=== PATIENT | female | born 1950 | race Caucasian/White ===

== ENCOUNTER → 2017-05-09 | Outpatient (CLI) | payer MEDICARE, BC ==
[~2017-05-09] MED LIST: HCTZ12.5TAB PO
== END ==
LOC: MC.RAD 10:20
DX: Z12.31 Encounter for screening mammogram for malignant neoplasm of breast (principal); Z85.3 Personal history of malignant neoplasm of breast

== ENCOUNTER → 2018-08-29 | Outpatient (CLI) | payer MEDICARE, BC | LOC: MC.RAD 05-30 07:00 | DX: Z12.31 Encounter for screening mammogram for malignant neoplasm of breast (principal) ==

== ENCOUNTER → 2019-11-19 | Outpatient (CLI) | payer MEDICARE, BC | LOC: MC.RAD 08:00 | DX: Z12.31 Encounter for screening mammogram for malignant neoplasm of breast (principal); Z98.890 Other specified postprocedural states ==

== ENCOUNTER → 2020-06-16 | Outpatient (CLI) | payer MEDICARE, BC | LOC: COL.RAD 10:14 | DX: N30.20 Other chronic cystitis without hematuria (principal) ==

== ENCOUNTER → 2023-06-07 | Outpatient (CLI) | payer MEDICARE, BC | LOC: MC.RAD 07:30 | DX: Z12.31 Encounter for screening mammogram for malignant neoplasm of breast (principal) ==

== ENCOUNTER 2023-06-28 09:05 | Inpatient (IN) | payer MEDICARE, BC ==
[2023-06-28] VITALS (7 sets, daily range): BP systolic 102–114; BP diastolic 64–75; PULSE 64–98; TEMP 97.5–98.2
[~2023-06-28] VITALS: Ht 167.6 cm; Wt 78.8 kg
[2023-06-28] MEDS ORDERED: LR 1,000 ML IV ONE (09:30)
[2023-06-28] MEDS ORDERED: cefTRIAXone 1 G in Water For Injection,Sterile 10 ML IV ONE (09:30)
[2023-06-28] MEDS ORDERED: ZOFRAN ODT4 MG PO (09:48)
[2023-06-28] MEDS ORDERED: VANTIN 200200 MG/TAB PO (09:48)
[2023-06-28 09:58] LABS: HEMOGLOBIN 14.1 g/dl (12.5-16.0); MEAN CELL VOLUME 84 fl (80.0-100.0); MEAN CORPUSCULAR HEMOGLOBIN 31 pg (27-31); MEAN CORPUSCULAR HGB CONC 37 g/dl (33.0-37.0); MEAN PLATELET VOLUME 11.5 fl (7.4-10.4); PLATELET COUNT 146 K/mm3 (130-400); RED BLOOD COUNT 4.55 M/mm3 (4.10-5.30); REDCELL DISTRIBUTION WIDTH-CV 12.3 % (11.5-14.5)
[2023-06-28 10:02] LABS: ALBUMIN 3.2 gm/dL (3.4-4.8); BILIRUBIN,TOTAL 1.5 mg/dL (0.2-1.2); CALCIUM 9.1 mg/dL (8.4-10.2); CREATININE, serum 0.76 mg/dL (0.57-1.11); TOTAL PROTEIN 6.9 gm/dL (6.2-8.1)
[2023-06-28 10:07] LABS: POTASSIUM 2.9 mmol/L (3.5-4.5)
[2023-06-28 10:08] LABS: TROPONIN-I 0.029 ng/mL (0.00-0.033)
[2023-06-28 10:28] LABS: BAND 28 % (0-10); LYMPHOCYTE 24 % (20.0-51.0); METAMYELOCYTE 1 % (0-0); NEUTROPHILS 39 % (42.0-75.2); PLATELET ESTIMATE NORMAL (NORMAL)
[2023-06-28] MEDS ORDERED: HCTZ 25MG TAB25 MG PO (10:52)
[2023-06-28] MEDS ORDERED: COZAAR100 MG PO (10:54)
[2023-06-28] MEDS ORDERED: ASPIRIN E.C. 8181 MG PO (10:54)
[2023-06-28] MEDS ORDERED: THE MEDICINE S200 M2 PO (10:55)
[2023-06-28] MEDS ORDERED: CALCIUM 600 PLU1 TAB PO (10:55)
[2023-06-28] MEDS ORDERED: B COMPLEX #11 TA1 PO (10:55)
[2023-06-28] MEDS ORDERED: OMEGA-3 FISH1000 MG PO (10:56)
[2023-06-28] MEDS ORDERED: MULTI-VITAMIN W1 TA1 PO (10:56)
[2023-06-28] MEDS ORDERED: CATAPRES 0.1MG0.1 MG PO (11:01)
[2023-06-28] MEDS ORDERED: *Potassium Replacement Protocol MC SCH (11:45)
[2023-06-28] MEDS ORDERED: NS 1,000 ML IV SCH (11:45)
[2023-06-28] MEDS ORDERED: cefTRIAXone 1 G in Water For Injection,Sterile 10 ML IV SCH (11:45)
[2023-06-28] MEDS ORDERED: Potassium Chloride 100 ML IV SCH (11:45)
[2023-06-28] MEDS ORDERED: Ondansetron 4 MG/2 ML VIAL IV PRN (11:45)
[2023-06-28] MEDS ORDERED: Acetaminophen 325 MG TAB PO PRN (11:45)
[2023-06-28] MEDS ORDERED: Magnesium Sulfate 4% 50 ML IV ONE (12:00)
[2023-06-28 12:39] LABS: COLLECTION METHOD CLEAN CATCH
--- NOTE | 2023-06-28 12:55 | NUR ---
Patient arrived to the medical unit room 308, alert and oriented x 4, VSS. Transfered herself from wheelchair to bed.
[2023-06-28 13:16] LABS: PH 6.5 (5.0-8.5); URINE APPEARANCE Clear (CLEAR/HAZY); URINE BLOOD 2+ (NEGATIVE); URINE COLOR Amber (YELLOW); URINE GLUCOSE Negative (NEGATIVE); URINE KETONE TRACE (NEGATIVE); URINE NITRATE Positive (NEGATIVE); URINE PROTEIN(semi-quant) 1+ (NEGATIVE)
[2023-06-28 13:17] LABS: SQUAMOUS EPITHELIAL None Seen /hpf (0-10); URINE RBC None Seen /hpf (0-2)
[2023-06-28 13:38] LABS: OSMOLALITY-URINE random 300 Osm/kg (50-1200)
--- NOTE | 2023-06-28 13:58 | NUR ---
Call placed to MRI, aprox time to be done 1420hrs.
--- NOTE | 2023-06-28 14:54 | NUR ---
Patient admitted to unit around 1300. Patient alert and oriented x4. Skin intact. Heart rhythm irregular, rate in 90s. Patient denies pain outside of baseline hip pain. States she has just been feeling dizzy and weak, had two syncope episodes total. Patient did not recall second syncope episode this morning, reminded her. IV placed in ER to [facility]. Gait is steady, but patient encouraged to call for ambulation assistance due to dizziness, patient agreed. Education provided on Afib and updated on cardiac consult notes. Patient in bed with call light in reach.
[2023-06-28] MEDS ORDERED: Potassium Bicarbonate/Citrate 20 MEQ Effervescent TAB PO SCH (15:15)
[2023-06-28] MEDS ORDERED: hydrALAZINE 25 MG TAB PO SCH (17:00)
[2023-06-28] MEDS ORDERED: hydrALAZINE 25 MG TAB PO PRN (17:45)
--- NOTE | 2023-06-28 18:04 | NUR ---
Patient remains stable, complains of hip pain. PRN Tylenol administered. Low appetite, but patient eating a small dinner. Potassium continues to be replaced. All needs met at this time.
--- NOTE | 2023-06-28 20:15 | NUR ---
Patient resting in bed. Denies any pain or needs at this time. Assessment complete. IV in right AC infusing with no complications. Hear rate irregular, A-fib. Call light and personal items in reach. Bed in low position and bed alarm on.
[2023-06-29] VITALS (12 sets, daily range): BP systolic 101–129; BP diastolic 59–89; PULSE 75–101; TEMP 97.5–100.5
[2023-06-29 04:54] LABS: HEMOGLOBIN 12.8 g/dl (12.5-16.0); MEAN CELL VOLUME 84 fl (80.0-100.0); MEAN CORPUSCULAR HEMOGLOBIN 31 pg (27-31); MEAN CORPUSCULAR HGB CONC 37 g/dl (33.0-37.0); MEAN PLATELET VOLUME 11.3 fl (7.4-10.4); PLATELET COUNT 125 K/mm3 (130-400); RED BLOOD COUNT 4.11 M/mm3 (4.10-5.30); REDCELL DISTRIBUTION WIDTH-CV 12.5 % (11.5-14.5)
[2023-06-29 04:58] LABS: HEMATOCRIT 34.5 % (37.0-47.0)
[2023-06-29 05:09] LABS: CALCIUM 8.5 mg/dL (8.4-10.2); CREATININE, serum 0.7 mg/dL (0.57-1.11); MAGNESIUM 1.8 mg/dL (1.6-2.6); POTASSIUM 3.5 mmol/L (3.5-4.5)
--- NOTE | 2023-06-29 05:26 | NUR ---
Patient resting in bed. Denies any pain or needs at this time. No changes over night. Call light and personal items in reach. Bed in low position and bed alarm on.
[2023-06-29 05:58] LABS: BAND 16 % (0-10); LYMPHOCYTE 38 % (20.0-51.0); NEUTROPHILS 41 % (42.0-75.2); PLATELET ESTIMATE NORMAL (NORMAL)
[2023-06-29] MEDS ORDERED: Potassium Bicarbonate/Citrate 20 MEQ Effervescent TAB PO SCH (08:30)
[2023-06-29] MEDS ORDERED: Influenza Virus Vaccine, Hi-Dose Quad '23-24 (65 YR+) 0.7 ML SYRINGE IM SCH (09:00)
--- NOTE | 2023-06-29 09:30 | NUR ---
PT LAYING IN BED UPON ENTERING. ASSESSMENT DONE, MEDS GIVEN PER ORDER. PT DENIES PAIN OR SHORTNESS OF BREATH AT THIS TIME. NS RUNNING AT 125 MLS/HR PER ORDER IN RIGHT AC, NO COMPLICATIONS NOTED. FLU SHOT GIVEN IN RIGHT DELTOID. TEMP 99.6, PRN TYLENOL GIVEN. PT DENIES NEEDS AT THIS TIME. POTASSIUM REPLACEMENT DOSE 1/3 GIVEN. BED IN LOWEST POSITION, CALL LIGHT IN REACH. SAFETY PIN ASSEMBLING MACHINE OPERATOR AT BEDSIDE UPON THIS NURSE LEAVING.
--- NOTE | 2023-06-29 09:47 | NUR ---
ash pit worker met with pt to discuss discharge planing. Pt reports she lives with her , Travis [phone] in [place]. Travis is also DPOA-HC and she will inform her to bring in a copy to RN. Pt reports she sees Dr. Cherry and obtains medications from [facility] with no difficulties. She is independnet with ADLS and uses no DME. She intends to return home at discharge. PT/OT Pending Discharge Plan; Home, pending evdiana
--- NOTE | 2023-06-29 12:08 | NUR ---
Data: Patient accepted the Vehicle Damage Appraiser visit offered to her during Vehicle Damage Appraiser rounds. Patient and Vehicle Damage Appraiser had long conversation about several topics including medical supply stores and gardening centers. Assessment: Patient is personable and enjoys having conversation. Plan of Care: Chaplains will remain available as needed/desired while Patient admitted to this hospital. Patient thanked Vehicle Damage Appraiser for this visit.
--- NOTE | 2023-06-29 15:00 | NUR ---
FLUIDS DISCONTINUED. PT EDUCATED ON 1L FREE WATER RESTRICT AND VERBALIZED UNDERSTANDING. PT GIVEN A GATORADE AND DENIES NEEDS AT THIS TIME
--- NOTE | 2023-06-29 19:05 | NUR ---
REPORT GIVEN TO TYLER JOHNSON
[2023-06-30] VITALS (13 sets, daily range): BP systolic 113–167; BP diastolic 62–84; PULSE 72–87; TEMP 97.6–99.3
--- NOTE | 2023-06-30 00:53 | NUR ---
patient lying in bed alert and oriented x4. pt denies chest pain and shortness of breath. temp measured as 100.5, tylenol given. pt reports continuing to work on drinking gatorade instead of water since met free water restriction earlier this evening. IV in RAC is patent, site is clean dry and intact. no remarkable skin findings noted. pt has no further needs, questions or concerns at this time. call light within reach. will continue to monitor.
[2023-06-30 07:54] LABS: HEMOGLOBIN 11.3 g/dl (12.5-16.0); MEAN CELL VOLUME 87 fl (80.0-100.0); MEAN CORPUSCULAR HEMOGLOBIN 31 pg (27-31); MEAN CORPUSCULAR HGB CONC 35 g/dl (33.0-37.0); MEAN PLATELET VOLUME 11.5 fl (7.4-10.4); PLATELET COUNT 140 K/mm3 (130-400); RED BLOOD COUNT 3.68 M/mm3 (4.10-5.30); REDCELL DISTRIBUTION WIDTH-CV 12.8 % (11.5-14.5)
[2023-06-30 08:18] LABS: CALCIUM 8.4 mg/dL (8.4-10.2); CREATININE, serum 0.7 mg/dL (0.57-1.11); POTASSIUM 4.3 mmol/L (3.5-4.5)
[2023-06-30 08:51] LABS: BAND 9 % (0-10); LYMPHOCYTE 62 % (20.0-51.0); NEUTROPHILS 24 % (42.0-75.2); PLATELET ESTIMATE NORMAL (NORMAL)
--- NOTE | 2023-06-30 10:51 | NUR ---
Assessment completed this am. Pt a/o x4. Compliant with free water restriction of 1L/day. Drinking gatorade. Denies pain, dizziness, light headedness or painful urination. Denies needs at this time.
--- NOTE | 2023-06-30 15:52 | NUR ---
Bedside report given to TYLER Hsu.
--- NOTE | 2023-06-30 21:57 | NUR ---
patient lying in bed, alert and oriented x4. pt jacinda chest pain and shortness of breath. IV in RAC is patent, site is clean dry and intact. small genralized scattered bruising on extremities. pt has no further needs, qustions or concerns at this time. fall precautions in place, call light within reach. will continue to monitor.
[2023-07-01] VITALS (10 sets, daily range): BP systolic 123–143; BP diastolic 56–85; PULSE 58–77; TEMP 98.2–99.9
[2023-07-01 06:37] LABS: HEMOGLOBIN 10.7 g/dl (12.5-16.0); MEAN CELL VOLUME 90 fl (80.0-100.0); MEAN CORPUSCULAR HEMOGLOBIN 31 pg (27-31); MEAN CORPUSCULAR HGB CONC 35 g/dl (33.0-37.0); MEAN PLATELET VOLUME 11.6 fl (7.4-10.4); PLATELET COUNT 149 K/mm3 (130-400); RED BLOOD COUNT 3.46 M/mm3 (4.10-5.30); REDCELL DISTRIBUTION WIDTH-CV 12.7 % (11.5-14.5)
[2023-07-01 06:57] LABS: CALCIUM 8.4 mg/dL (8.4-10.2); CREATININE, serum 0.67 mg/dL (0.57-1.11); POTASSIUM 4.1 mmol/L (3.5-4.5)
[2023-07-01 07:22] LABS: BAND 10 % (0-10); METAMYELOCYTE 4 % (0-0); NEUTROPHILS 20 % (42.0-75.2); PLATELET ESTIMATE NORMAL (NORMAL)
[2023-07-01 07:23] LABS: LYMPHOCYTE 56 % (20.0-51.0)
[2023-07-01 08:09] LABS: PATHOLOGY DIFF REVIEW OK
--- NOTE | 2023-07-01 08:45 | NUR ---
SLEEVE SEWER NOTIFIED PATIENT NPO PENDING CARDIOLOGY RECS
--- NOTE | 2023-07-01 09:20 | NUR ---
POSTMASTER RELIEF AWARE PATIENT WAITING TO TAKE MULTAQ UNTIL SHE SPEAKS WITH BOMBSIGHT SPECIALIST
--- NOTE | 2023-07-01 11:00 | NUR ---
PATIENT CLEARED BY PT/OT FOR PATIENT TO BED INDEPENDENT WITH ADLS.
--- NOTE | 2023-07-01 11:55 | NUR ---
ATTEMPT MADE TO CONTACT PATIENTS PCP OFFICE FOR URINE CX RESULTS. VM LEFT FOR CALL BACK, RN EXTENSION LEFT FOR CALL BACK WELL
[2023-07-01] MEDS ORDERED: MULTAQ400 MG PO (12:28)
[2023-07-01] MEDS ORDERED: CEPHALEXIN500 M1 PO (12:29)
[2023-07-01] MEDS ORDERED: ELIQUIS 5MG PO (12:29)
--- NOTE | 2023-07-01 12:53 | NUR ---
PATIENT CALLED AND IS UNABLE TO AFFORD MULTAQ A PRESCRIPTION AFTER INSURANCE. PATIENT IS CONSIDERING SOTALOL INITIATION, PENDING HER SPEAKING WITH THE SPRAY BLENDER. EXPLOSIVE TECHNICIAN INFMORMED. DR GURROLA AWARE LADLE FILLER STAFF AT BEDSIDE FOR LOOP RECORDER IMPANTATION.
--- NOTE | 2023-07-01 13:02 | NUR ---
ALEXX LEFT AT [facility] FOR CALL BACK REGARDING MEDICATION PRICES
--- NOTE | 2023-07-01 13:03 | NUR ---
LOOP RECORDER IMPLANTATIN CONSENT SIGNED AND ON THE CHART
--- NOTE | 2023-07-01 13:57 | NUR ---
DAVIAN INCISION SITE TO CHEST FROM LOOP RECORDER IMPLANTATION CDI. PATIENT DENIES ANY NEEDS OR COMPLAINTS AT THIS TIME. CALL LIGHT WTIHIN REACH.
--- NOTE | 2023-07-01 13:58 | NUR ---
THIS RN SPOKE WITH PHARMACIST AT [facility]. PER [facility] WITH PATIENT INSURANCE SOTALOL WILL BE AROUND 4$ PER MONTH AND COUMADIN WOULD BE 0$ COPAY FOR A MONTH SUPPLY. PATIENT, DR GURROLA AND CONSTRUCTION SAFETY CONSULTANT AMANDA ALL INFORMED. ALL THREE ARE IN AGREEMENT.
--- NOTE | 2023-07-01 14:41 | NUR ---
Roller Print Tender met with patient to present and review IM as there was a possibility of discharge. Patient verbalized understanding and provided signature. SW placed form in chart and provided copy to patient.
--- NOTE | 2023-07-01 18:21 | NUR ---
PATIENT TOLERATED ORAL SOTALOL. PATIETN SITTING UP IN BED, AWAKE AND ALERT. FRIEND AT BEDSIDE, CALL LIGHT WITHIN REACH.
--- NOTE | 2023-07-01 20:10 | NUR ---
PT LAYING IN BED UPON ENTERING, PT IN PERSONAL CLOTHES. ASSESSMENT DONE, MEDS GIVEN PER ORDER. PT DENIES PAIN AT THIS TIME. INT TO RIGHT AC FLUSHES WELL WITHOUT COMPLICATIONS. PT DENIES NEEDS AT THIS TIME AND ASKS IF ITS OKAY TO GO FOR A WALK. THIS NURSE NOTIFIED PT THAT THEY MUST STAY ON THE UNIT AND TO LET US KNOW WHEN SHE IS READY TO [place], PT VERBALIZED UNDERSTANDING. BED IN LOWEST POSITION, CALL LIGHT IN REACH
[2023-07-01] MEDS ORDERED: Warfarin 5 MG TAB PO SCH (21:00)
[2023-07-02] VITALS (12 sets, daily range): BP systolic 131–145; BP diastolic 60–88; PULSE 57–68; TEMP 98.1–102.9
--- NOTE | 2023-07-02 06:19 | NUR ---
PT LAYING IN BED UPON ENTERING, PT ALERT TO THIS NURSE ENTERING. PT HAD AN UNEVENTFUL NIGHT AND DENIES NEEDS AT THIS TIME. BED IN LOWEST POSITION, CALL LIGHT IN REACH
--- NOTE | 2023-07-02 07:10 | NUR ---
REPORT GIVEN TO BRENDON MADDOX RN
[2023-07-02 07:36] LABS: PROTHROMBIN TIME 11.3 SECONDS (9.7-12.8)
--- NOTE | 2023-07-02 10:43 | NUR ---
Patient alert and oriented x4. Shift assessment complete. Heart rate slightly bradycardic, rhythym irregular. Patient voices no concerns at this time. Complains of baseline hip pain, PRN Tylenol administered. Activity at baseline. at bedside. All needs met at this time.
--- NOTE | 2023-07-02 19:28 | NUR ---
Patient remains stable. Ambulates frequently around hallways. Voices no concerns at this time. Resting in bed with call light in reach, all needs met at this time.
--- NOTE | 2023-07-02 19:50 | NUR ---
PT LAYING IN BED UPON ENTERING. PT IN PERSONAL CLOTHES AND DENIES PAIN AT THIS TIME. ORAL SOTALOL AND MEDS GIVEN PER ORDER. INT TO RIGHT AC PATENT WITHOUT COMPLICATIONS. PT DENIES NEEDS AT THIS TIME. BED IN LOWEST POSITION, CALL LIGHT IN REACH, BED ALARM ON.
--- NOTE | 2023-07-02 23:15 | NUR ---
PCT TOLD THIS NURSE THAT PTS TEMP IS 102.9, UPON ENTERING PT IS LAYING IN BED. PRN TYLENOL GIVEN. PT DENIES NEEDS AT THIS TIME. BED IN LOWEST POSITION, CALL LIGHT IN REACH
[2023-07-03] VITALS (7 sets, daily range): BP systolic 135–168; BP diastolic 75–89; PULSE 58–61; TEMP 98.2–98.5
--- NOTE | 2023-07-03 06:20 | NUR ---
PT HAD AN UNEVENTFUL NIGHT AND DENIES NEEDS AT THIS TIME. BED IN LOWEST POSITION, CALL LIGHT IN REACH
[2023-07-03 06:46] LABS: HEMOGLOBIN 11.1 g/dl (12.5-16.0); MEAN CELL VOLUME 93 fl (80.0-100.0); MEAN CORPUSCULAR HEMOGLOBIN 31 pg (27-31); MEAN CORPUSCULAR HGB CONC 33 g/dl (33.0-37.0); MEAN PLATELET VOLUME 11.3 fl (7.4-10.4); PLATELET COUNT 154 K/mm3 (130-400); RED BLOOD COUNT 3.61 M/mm3 (4.10-5.30); REDCELL DISTRIBUTION WIDTH-CV 13.1 % (11.5-14.5)
[2023-07-03 06:55] LABS: HEMATOCRIT 33.4 % (37.0-47.0)
[2023-07-03 06:55] LABS: PROTHROMBIN TIME 11.2 SECONDS (9.7-12.8)
[2023-07-03 07:06] LABS: CALCIUM 8.7 mg/dL (8.4-10.2); CREATININE, serum 0.72 mg/dL (0.57-1.11); MAGNESIUM 1.9 mg/dL (1.6-2.6); POTASSIUM 3.8 mmol/L (3.5-4.5)
--- NOTE | 2023-07-03 07:19 | NUR ---
REPORT GIVEN TO TYLER INFANTE
[2023-07-03 07:27] LABS: BAND 12 % (0-10); EOSINOPHIL 1 % (0-4); LYMPHOCYTE 59 % (20.0-51.0); METAMYELOCYTE 1 % (0-0); NEUTROPHILS 18 % (42.0-75.2); PLATELET ESTIMATE NORMAL (NORMAL)
[2023-07-03] MEDS ORDERED: Potassium Bicarbonate/Citrate 20 MEQ Effervescent TAB PO ONE (08:00)
[2023-07-03] MEDS ORDERED: Losartan 50 MG TAB PO SCH (09:00)
--- NOTE | 2023-07-03 10:41 | NUR ---
PT RESTING IN BED WITH NO PAIN AT THIS TIME. STEADY GAIT AROUND ROOM, A/O X4, AND STATING "I AM READY TO DISCHARGE". NO NEEDS AT THIS TIME. WILL CONTINUE TO MONITOR.
[2023-07-03] MEDS ORDERED: COZAAR 50MG50 MG/TAB PO (12:19)
[2023-07-03] MEDS ORDERED: BETAPACE 80MG80 MG PO (12:19)
[2023-07-03] MEDS ORDERED: COUMADIN 5MG5 MG/TAB PO (12:19)
[2023-07-03] MEDS ORDERED: LOVENOX 8080 MG/0.8 SQ (12:21)
[2023-07-03] MEDS ORDERED: OMNICEF 300MG300 MG PO (14:00)
--- NOTE | 2023-07-03 14:17 | NUR ---
DISCHARGE INSTRUCTIONS PROVIDED TO PT AND FAMILY. DISCUSSED FOLLOW UP APPOINTMENTS, NEW MEDICATIONS, AND SIGNS OF INFECTION. IV REMOVED. NO QUESTIONS AT THIS TIME. PT AND BELONGINGS ESCORTED OUT OF BUILDING.
== END 2023-07-03 14:09 | disposition home or self-care (01) | DRG 261 ==
LOC: COL.ER 09:05 → MEDICAL 12:06
PROVIDERS: Emergency Medicine; Physician Assistant; ADMIT Internal Medicine
PROC: 0JH602Z Insertion of Monitoring Device into Chest Subcutaneous Tissue and Fascia, Open Approach (ICD-10-PCS; principal; 2023-07-01)
DX: I48.91 Unspecified atrial fibrillation (principal); E87.1 Hypo-osmolality and hyponatremia; N39.0 Urinary tract infection, site not specified; M16.12 Unilateral primary osteoarthritis, left hip; J45.909 Unspecified asthma, uncomplicated; I10 Essential (primary) hypertension; D64.9 Anemia, unspecified; E87.6 Hypokalemia; I08.1 Rheumatic disorders of both mitral and tricuspid valves; Z90.710 Acquired absence of both cervix and uterus; Z90.89 Acquired absence of other organs; Z85.3 Personal history of malignant neoplasm of breast; Z92.21 Personal history of antineoplastic chemotherapy; Z92.3 Personal history of irradiation; Z79.82 Long term (current) use of aspirin; Z79.899 Other long term (current) drug therapy
CPT/HCPCS: C1764; J0696; J1650; J3475; J3480; J7030; J7120